=== PATIENT | male | born 1975 | race African-American/Black ===

== ENCOUNTER 2018-03-03 23:13 | Emergency (ER) | payer OTHER ==
[2018-03-03 23:17] VITALS: BP 165/80; PULSE 56; TEMP 98.4; BMI 34.7
--- NOTE | 2018-03-04 00:35 | PDOC ---
History of Present Illness - General History Source: Patient Exam Limitations: No Limitations - History of Present Illness Initial Comments: 03/04/18 00:46 The patient is a 42 year old male with history of cigarette smoking who presents to the ED complaining of approximately 4 days of diffuse upper abdominal pain which radiates to the back and up the sternum. He also reports associated nausea and vomiting with PO intolerance. He also complains of sore throat which is worse with swallowing. Denies diarrhea or constipation. Denies fever or chills. Denies chest pain or shortness of breath. <Shazia Llamas - Last Filed: 03/04/18 00:46> <Minnie Mejia - Last Filed: 03/04/18 05:00> - General Chief Complaint: Nausea/Vomiting Stated Complaint: FATIGUE Time Seen by Provider: 03/04/18 00:14 Past History <Shazia Llamas - Last Filed: 03/04/18 00:46> - Past Medical History COPD: No - Suicide/Smoking/Psychosocial Hx Smoking Status: Yes Smoking History: Current some day smoker Number of Cigarettes Smoked Daily: 4 Information on smoking cessation initiated: No Drug/Substance Use Hx: No Substance Use Type: None <Minnie Mejia - Last Filed: 03/04/18 05:00> - Past Medical History Allergies/Adverse Reactions: Allergies Allergy/AdvReac Type Severity Reaction Status Date / Time No Known Allergies Allergy Verified 03/03/18 23:14 Home Medications: Ambulatory Orders Doxycycline Hyclate [Vibramycin] 100 mg PO BID #20 capsule 01/09/12 Ibuprofen [Motrin] 400 mg PO QID #20 tablet 01/09/12 Doxycycline Monohydrate [Monodox] 100 mg PO Q12H #14 capsule 08/10/12 Oxycodone HCl/Acetaminophen [Percocet 7.5-325 mg Tablet] 1 tab PO Q6H #20 tablet 08/10/12 Review of Systems - Review of Systems Able to Perform ROS?: Yes Comments:: 03/04/18 01:00 GENERAL/CONSTITUTIONAL: No fever or chills. HEAD, EYES, EARS, NOSE AND THROAT: +Sore throat. No change in vision. No ear pain or discharge. CARDIOVASCULAR: No chest pain or shortness of breath. RESPIRATORY: No cough, wheezing, or hemoptysis. GASTROINTESTINAL: +Abdominal pain, nausea, vomiting. No diarrhea or constipation. GENITOURINARY: No dysuria, frequency, or change in urination. MUSCULOSKELETAL: No joint or muscle swelling or pain. No neck or back pain. SKIN: No rash NEUROLOGIC: No headache, vertigo, loss of consciousness, or change in strength/ sensation. ENDOCRINE: No increased thirst. No abnormal weight change. HEMATOLOGIC/LYMPHATIC: No anemia, easy bleeding, or history of blood clots. ALLERGIC/IMMUNOLOGIC: No hives or skin allergy. <Shazia Llamas - Last Filed: 03/04/18 00:46> *Physical Exam - Vital Signs Last Vital Signs Temp Pulse Resp BP Pulse Ox 98.4 F 56 L 18 165/80 97 03/03/18 23:15 03/03/18 23:15 03/03/18 23:15 03/03/18 23:15 03/03/18 23:15 - Physical Exam Comments: 03/04/18 01:01 GENERAL: Awake, alert, and fully oriented, in no acute distress. Uncomfortable appearing. HEAD: No signs of trauma EYES: PERRLA, EOMI, sclera anicteric, conjunctiva clear ENT: Auricles normal inspection, hearing grossly normal, nares patent, oropharynx clear without exudates. Moist mucosa NECK: Normal ROM, supple, no lymphadenopathy, JVD, or masses LUNGS: Breath sounds equal, clear to auscultation bilaterally. No wheezes, and no crackles HEART: Regular rate and rhythm, normal S1 and S2, no murmurs, rubs or gallops ABDOMEN: Soft, nontender, normoactive bowel sounds. No guarding, no rebound. No masses EXTREMITIES: Normal range of motion, no edema. No clubbing or cyanosis. No cords, erythema, or tenderness NEUROLOGICAL: Cranial nerves II through XII grossly intact. Normal speech, normal gait SKIN: Warm, Dry, normal turgor, no rashes or lesions noted. <Shazia Llamas - Last Filed: 03/04/18 00:46> - Vital Signs Last Vital Signs Temp Pulse Resp BP Pulse Ox 98.4 F 56 L 18 165/80 97 03/03/18 23:15 03/03/18 23:15 03/03/18 23:15 03/03/18 23:15 03/03/18 23:15 <Minnie Mejia - Last Filed: 03/04/18 05:00> ED Treatment Course - LABORATORY CBC & Chemistry Diagram: 03/04/18 01:00 03/04/18 01:00 <Minnie Mejia - Last Filed: 03/04/18 05:00> Medical Decision Making - Medical Decision Making 03/04/18 03:13 Pt has normal labs except for a slightly elevated WBC count. He also has elevated CPK, but tells me that he lifts weights. Pt's CXR is normal. He states that he has Epig abd pain. We will get a CT scan of his abd/pelvis 03/04/18 04:58 Patient Name: IGNACIO CORNELIUS THIS IS A PRELIMINARY REPORT FROM [facility] DATE OF SERVICE: 2018-03-04 03:35:41 IMAGES: 132 EXAM: ABDOMEN \T\ PELVIS CT W/O CONTR HISTORY: Abdominal pain COMPARISON: None. FINDINGS: Abdomen Liver: Low-attenuation hepatic masses suggest cyst formations and cavernous hemangiomas Spleen: Normal Pancreas: Normal Gallbladder: Normal Stomach: Normal Small bowel: Normal Large bowel: Normal Appendix: Normal Adrenals:Normal Kidneys: There is a nonobstructing left calyceal renal stone Vascular: Normal Lymphatic: Normal Peritoneal: No free peritoneal air or fluid Pelvis: Prostate: normal Rectum: Normal Bladder: Normal The inferior thorax: Normal General: There is a left hip replacement Abdominal wall: Normal IMPRESSION: Nephrolithiasis <Minnie Mejia - Last Filed: 03/04/18 05:00> *DC/Admit/Observation/Transfer - Attestations Scribe Attestion: 03/04/18 01:01 Documentation prepared by Shazia Llamas, acting as director of medical staff services for Minnie Mejia MD. <Shazia Llamas - Last Filed: 03/04/18 00:46> - Discharge Dispostion Admit: No <Minnie Mejia - Last Filed: 03/04/18 05:00> Diagnosis at time of Disposition: Abdominal pain, Liver hemangioma, Kidney stone on left side - Discharge Dispostion Disposition: HOME Condition at time of disposition: Stable - Patient Instructions Printed Discharge Instructions: DI for Abdominal Pain-Adult
[2018-03-04] MEDS ORDERED: SODIUM CHLORIDE 0.9% 500 ML INFUS.BAG IV ONE (00:46)
[2018-03-04] MEDS ORDERED: FAMOTIDINE 20 MG/50 ML IVPB 20 MG/50 ML MG IVPB ONE ×2 (00:46→01:02)
[2018-03-04] MEDS ORDERED: morphine CARPU-JECT 2 MG/1 ML DISP.SYRIN IVPUSH ONE (00:46)
[2018-03-04] MEDS ORDERED: morphine SULFATE 4 MG/ML VIAL ONE (01:01)
[2018-03-04 01:19] LABS: BASO % 0.5 % (0-2.0); EOS % 0.1 % (0-4.5); HEMATOCRIT 44.6 % (35.4-49); HEMOGLOBIN 15.3 GM/dL (11.7-16.9); LYMPH % 19.7 % (8-40); MCH 32.7 pg (25.7-33.7); MCHC 34.4 g/dl (32.0-35.9); MEAN PLT VOLUME 10.3 fl (7.5-11.1); MONO % 8.4 % (3.8-10.2); NEUT % 71.3 % (42.8-82.8); PLATELET COUNT 182 K/MM3 (134-434); RBC 4.69 M/mm3 (4.00-5.60); RDW 13.2 % (11.9-15.9); WHITE BLOOD COUNT 14.4 K/mm3 (4.0-10.0)
[2018-03-04 01:44] LABS: ALBUMIN 4.1 g/dl (3.4-5.0); ANION GAP 9 (8-16); BILIRUBIN,TOTAL 0.9 mg/dL (0.2-1.0); BLOOD UREA NITROGEN 8 mg/dL (7-18); CHLORIDE 98 mmol/L (98-107); CO2 31 mmol/L (21-32); CREATININE 1.2 mg/dL (0.7-1.3); GLUCOSE,RANDOM 120 mg/dL (74-106); POTASSIUM 3.6 mmol/L (3.5-5.1); SGOT/AST 20 U/L (15-37); SGPT/ALT 23 U/L (12-78); SODIUM 138 mmol/L (136-145); TOT PROT 7.4 g/dl (6.4-8.2)
[2018-03-04 01:45] LABS: ALK PHOS 83 U/L (45-117)
--- NOTE | 2018-03-04 12:18 | EKG ---
Test Reason : Blood Pressure : / mmHG Vent. Rate : 048 BPM Atrial Rate : 048 BPM P-R Int : 140 ms QRS Dur : 082 ms QT Int : 484 ms P-R-T Axes : 036 036 072 degrees QTc Int : 432 ms SINUS BRADYCARDIA WITH OCCASIONAL PREMATURE VENTRICULAR COMPLEXES SEPTAL INFARCT , AGE UNDETERMINED ABNORMAL ECG NO PREVIOUS ECGS AVAILABLE Confirmed by LUIS CARTER MD ([id number]) on 03/04/2018 12:18:07 PM Referred By: Confirmed By:LUIS CARTER MD
== END 2018-03-04 05:49 | disposition home or self-care (01) ==
LOC: JER 23:13
PROC: 3E033GC Introduction of Other Therapeutic Substance into Peripheral Vein, Percutaneous Approach (ICD-10-PCS; principal; 2018-03-03)
PROC: 3E033NZ Introduction of Analgesics, Hypnotics, Sedatives into Peripheral Vein, Percutaneous Approach (ICD-10-PCS; 2018-03-03)
DX: N20.0 Calculus of kidney (principal); D18.03 Hemangioma of intra-abdominal structures; Z96.642 Presence of left artificial hip joint; F17.210 Nicotine dependence, cigarettes, uncomplicated
CPT/HCPCS: 36415; 71046-TC-FY; 74176-TC; 80053; 82550; 82553; 84484; 85025; 87070; 87430; 93005; 93010; 96365; 96375; 99282-25

== ENCOUNTER 2019-07-17 02:48 | Emergency (ER) | payer OTHER ==
[2019-07-17 03:05] VITALS: BMI 36.9
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
[2019-07-17 04:12] LABS: BASO % 0.7 % (0-2.0); EOS % 3.8 % (0-4.5); HEMATOCRIT 44.4 % (35.4-49); HEMOGLOBIN 14.6 GM/dL (11.7-16.9); LYMPH % 32.4 % (8-40); MCH 31.6 pg (25.7-33.7); MCHC 32.8 g/dl (32.0-35.9); MEAN CELL VOLUME 96.2 fl (80-96); MEAN PLT VOLUME 10.2 fl (7.5-11.1); MONO % 7.1 % (3.8-10.2); PLATELET COUNT 194 K/MM3 (134-434); RBC 4.62 M/mm3 (4.00-5.60); RDW 12.8 % (11.9-15.9)
[2019-07-17 04:16] LABS: EPI CELLS 1.5 /HPF (0-5/HPF); HYALINE CASTS 1 /lpf (0-8); URINE APPEARANCE CLEAR; URINE BILIRUBIN NEGATIVE (NEGATIVE); URINE COLOR YELLOW; URINE GLUCOSE (UA) NEGATIVE (NEGATIVE); URINE KETONE NEGATIVE (NEGATIVE); URINE LEUK ESTERASE 1+ (NEGATIVE); URINE NITRITE NEGATIVE (NEGATIVE); URINE PROTEIN NEGATIVE (NEGATIVE); URINE RBC 2 /hpf (0-4); URINE UROBILINOGEN 0.2 mg/dL (0.2-1.0); URINE WBC 8 /hpf (0-5)
[2019-07-17 04:23] LABS: INR 1.01 (0.83-1.09); PROTHROMBIN TIME (PATIENT) 11.9 SEC (9.7-13.0)
[2019-07-17 04:40] LABS: ALBUMIN 3.7 g/dl (3.4-5.0); BILIRUBIN,TOTAL 0.4 mg/dL (0.2-1); BLOOD UREA NITROGEN 14.2 mg/dL (7-18); CREATININE 1.1 mg/dL (0.55-1.3); POTASSIUM 4.6 mmol/L (3.5-5.1); TOT PROT 6.6 g/dl (6.4-8.2)
[2019-07-17] MEDS ORDERED: DOXYCYCLINE HYCLATE 100 MG CAPSULE PO ONE ×2 (06:11→06:33)
[2019-07-17] MEDS ORDERED: LIDOCAINE HCL 1%, 10 MG/ML (20ML VIAL) ONE (06:39)
[2019-07-17 06:53] VITALS: BP 126/78; PULSE 66; TEMP 98.5
== END 2019-07-17 06:51 | disposition home or self-care (01) ==
LOC: JER 02:48
DX: N45.1 Epididymitis (principal)
CPT/HCPCS: 36415; 76870-TC; 80053; 81003; 85025; 85610; 85730; 86850; 86900; 86901; 87077; 87086; 99282-25

== ENCOUNTER 2022-04-03 04:20 | Day surgery (SDC) | payer OTHER ==
[2022-03-29 08:53] VITALS: BMI 34.9
[2022-04-03] MEDS ORDERED: FENTANYL CITRATE/PF 50 MCG/ML VIAL ONE (14:39)
[2022-04-03] MEDS ORDERED: MIDAZOLAM HCL 2 MG/2 ML SINGLE DOSE VIAL ONE (14:39)
[2022-04-03] MEDS ORDERED: KETOROLAC TROMETHAMINE 30 MG/1 ML VIAL ONE (14:56)
[2022-04-03 15:48] VITALS: BP 122/76; PULSE 60; TEMP 97.3
== END 2022-04-03 16:10 | disposition home or self-care (01) ==
LOC: JASU-SURG 04:20
PROVIDERS: ATTEND Urology
PROC: 0TF4XZZ Fragmentation in Left Kidney Pelvis, External Approach (ICD-10-PCS; principal; 2022-04-03 14:00)
DX: N20.0 Calculus of kidney (principal)

== ENCOUNTER 2024-06-23 04:21 | Day surgery (SDC) | payer OTHER ==
[2024-06-20 13:51] VITALS: BMI 30.2
[2024-06-23] MEDS ORDERED: MIDAZOLAM HCL 2 MG/2 ML SINGLE DOSE VIAL ONE (14:29)
[2024-06-23] MEDS ORDERED: ONDANSETRON 4 MG/2 ML VIAL ONE (14:34)
[2024-06-23 15:49] VITALS: RESP 18; TEMP 97.8
[2024-06-23 15:51] VITALS: BP 114/78; PULSE 51
== END 2024-06-23 16:10 | disposition home or self-care (01) ==
LOC: JASU-SURG 04:21
PROVIDERS: ATTEND Urology
PROC: 0TF3XZZ Fragmentation in Right Kidney Pelvis, External Approach (ICD-10-PCS; principal; 2024-06-23 14:30)
DX: N20.0 Calculus of kidney (principal)